=== PATIENT | female | born 1985 | race Caucasian/White ===

== ENCOUNTER → 2018-09-03 | Outpatient (REF) | payer BC | LOC: M LAB REF 19:20 | PROVIDERS: ATTEND Physician Assistant | DX: J06.9 Acute upper respiratory infection, unspecified (principal) ==

== ENCOUNTER → 2020-11-14 | Outpatient (REF) | payer BC | LOC: M SFHCWAGY 18:39 | PROVIDERS: ATTEND Advanced Practice Midwife | DX: R87.610 Atypical squamous cells of undetermined significance on cytologic smear of cervix (ASC-US) (principal); Z12.4 Encounter for screening for malignant neoplasm of cervix ==

== ENCOUNTER → 2020-12-02 | Outpatient (REF) | payer BC | LOC: M LAB REF 12:51 | PROVIDERS: ATTEND Nurse Practitioner Adult Health | DX: L81.8 Other specified disorders of pigmentation (principal) ==

== ENCOUNTER → 2022-07-02 | Outpatient (REF) | payer BC | LOC: M SFHCWAGY 12:52 | PROVIDERS: ATTEND Advanced Practice Midwife | DX: Z12.4 Encounter for screening for malignant neoplasm of cervix (principal) ==

== ENCOUNTER → 2022-09-05 | Outpatient (REF) | payer BC | LOC: M SFHCWAGY 09:56 | PROVIDERS: ATTEND Advanced Practice Midwife | DX: R87.820 Cervical low risk human papillomavirus (HPV) DNA test positive (principal) ==

== ENCOUNTER → 2023-07-05 | Outpatient (REF) | payer BC | LOC: M SFHCWAGY 13:18 | PROVIDERS: ATTEND Advanced Practice Midwife | DX: Z12.4 Encounter for screening for malignant neoplasm of cervix (principal) | CPT/HCPCS: 87624; G0123 ==

== ENCOUNTER → 2024-08-25 | Outpatient (REF) | payer BC ==
[2024-08-27 14:52] LABS: HPV APTIMA Not Detected (Not Detected)
== END ==
LOC: M SFHCWAGY 17:23
PROVIDERS: ATTEND Advanced Practice Midwife
DX: Z12.4 Encounter for screening for malignant neoplasm of cervix (principal); R87.610 Atypical squamous cells of undetermined significance on cytologic smear of cervix (ASC-US)
CPT/HCPCS: 87624; G0123